=== PATIENT | male | born 1990 | race Caucasian/White ===

== ENCOUNTER 2017-04-01 20:34 | Emergency (ER) | payer MEDICAID ==
[~2017-04-01] VITALS: Ht 172.7 cm; Wt 68.0 kg
[2017-04-01 21:13] LABS: Urine RBC None Seen /hpf (0 - 3)
[2017-04-01 21:26] LABS: Basophils # (auto) 0.1 uL; Basophils % (auto) 0.5 % (0.0-2.0); CONDITION Y; Eosinophils # (auto) 0.6 uL; Eosinophils % (auto) 4.8 % (0.0-7.0); Hematocrit 46.8 % (41.0-53.0); Hemoglobin 16.5 g/dL (13.5-17.5); Lymphocytes # (auto) 2.8 uL; Mean Corpuscular Hemoglobin 33.1 pg (28.0-32.0); Mean Corpuscular Hgb Conc. 35.3 g/dL (32.0-36.0); Mean Corpuscular Volume 93.9 fL (80.0-100.0); Mean Platelet Volume 7.9 fL (7.4-10.4); Monocytes % (auto) 7.7 % (0.0-12.0); Neutrophils # (auto) 8.2 uL; Platelet Count (auto) 401 10^3/uL (140-450); Red Cell Distribution Width 12.3 % (11.6-16.0); White Blood Cell 12.6 10^3/uL (4.4-10.8)
[2017-04-01 21:31] LABS: Urine Bilirubin Negative (Negative); Urine Blood Negative /uL (Negative); Urine Color Colorless (Yellow); Urine Glucose Normal (Normal); Urine Ketone Negative (Negative); Urine Nitrite Negative (Negative); Urine Urobilinogen Normal (Negative); Urine pH 6.5 (5.0-8.0)
[2017-04-01 21:42] LABS: Albumin 3.9 g/dL (3.4-5.0); Calcium 8.9 mg/dL (8.5-10.1); Potassium 4.1 mmol/L (3.5-5.1)
[2017-04-01 21:45] LABS: Bilirubin, Total 0.9 mg/dL (0.2-1.0); Total Protein 7.6 g/dL (6.4-8.2)
[2017-04-02] MEDS ORDERED: HYDROcodone-ACET 7.5/325MG TAB PO ONE (05:00)
[2017-04-02] MEDS ORDERED: KETOROLAC TROMETH 60MG/2ML VIAL IM ONE (05:00)
[2017-04-02] MEDS ORDERED: KETOROLAC TROMETH 30 MG/ML 1ML VIAL IV ONE (05:30)
[2017-04-02 06:09] VITALS: BP 107/62
== END 2017-04-02 06:12 | disposition home or self-care (01) ==
LOC: ER 20:48
DX: G43.001 Migraine without aura, not intractable, with status migrainosus (principal); J45.909 Unspecified asthma, uncomplicated; R42 Dizziness and giddiness
CPT/HCPCS: 36415; 80053; 80307; 81001; 82962; 85025; 96374; 99284; J1885

== ENCOUNTER 2018-06-21 14:39 | Emergency (ER) | payer MEDICAID ==
[~2018-06-21] VITALS: Ht 172.7 cm; Wt 74.8 kg
[2018-06-21 15:27] LABS: Urine Bacteria NONE SEEN /hpf (None Seen); Urine Blood Negative /uL (Negative); Urine Specific Gravity 1.015 (1.001-1.035); Urine WBC <1 /hpf (0 - 3)
[2018-06-21 16:40] LABS: Basophils # (auto) 0.1 uL; Basophils % (auto) 0.8 % (0.0-2.0); Eosinophils # (auto) 0.5 uL; Eosinophils % (auto) 3.7 % (0.0-7.0); Hematocrit 45.5 % (41.0-53.0); Hemoglobin 16.2 g/dL (13.5-17.5); Lymphocytes # (auto) 2.2 uL; Lymphocytes % (auto) 15.8 % (10.0-50.0); Mean Corpuscular Hemoglobin 33.3 pg (28.0-32.0); Mean Corpuscular Hgb Conc. 35.6 g/dL (32.0-36.0); Mean Corpuscular Volume 93.6 fL (80.0-100.0); Monocytes # (auto) 1.1 uL; Monocytes % (auto) 7.8 % (0.0-12.0); Neutrophils % (auto) 71.9 % (37.0-80.0); Nucleated Red Blood Cells % 0.1 %; Platelet Count (auto) 381 10^3/uL (140-450); Red Blood Cells 4.86 10^6/uL (4.5-5.90); Red Cell Distribution Width 12.7 % (11.8-14.3); White Blood Cell 13.9 10^3/uL (4.4-10.8)
[2018-06-21 16:49] LABS: Albumin 3.9 g/dL (3.4-5.0); Calcium 9.1 mg/dL (8.5-10.1); Potassium 3.8 mmol/L (3.5-5.1)
[2018-06-21 16:53] LABS: BUN/Creatinine Ratio 16.1; Bilirubin, Total 0.9 mg/dL (0.2-1.0)
[2018-06-21] MEDS ORDERED: PANTOPRAZOLE 40 MG TAB PO ONE (20:30)
[2018-06-21 20:41] VITALS: BP 112/55
[2018-06-21] MEDS ORDERED: ONDANSETRON ODT 4 MG TAB PO ONE (20:45)
== END 2018-06-21 21:14 | disposition home or self-care (01) ==
LOC: ER 14:41
DX: K29.70 Gastritis, unspecified, without bleeding (principal)
CPT/HCPCS: 36415; 74176; 80053; 81001; 82150; 83690; 85025; 99285; Q0162